=== PATIENT | male | born 1990 | race American Indian/Alaskan Native ===

== ENCOUNTER 2019-12-17 19:05 | Emergency (ER) | payer SELFPAY ==
[2019-12-17 19:26] VITALS: BP 138/78
== END 2019-12-17 21:17 | disposition left against medical advice (07) ==
LOC: ED 19:05
DX: T78.40XA Allergy, unspecified, initial encounter (principal); Z53.21 Procedure and treatment not carried out due to patient leaving prior to being seen by health care provider

== ENCOUNTER 2020-09-21 18:15 | Emergency (ER) | payer SELFPAY ==
[2020-09-21 19:09] VITALS: BP 115/85
[2020-09-21] MEDS ORDERED: TETANUS,DIPH,PERTUSS(ACELL) VACCINE 0.5 ML SYRINGE IM ONE (19:14)
--- NOTE | 2020-09-21 19:36 | Emergency Department Report ---
ED General Adult HPI - General Chief complaint: Wound/Laceration Stated complaint: LAC HAND LAC Time Seen by Provider: 09/21/20 19:14 Source: patient Mode of arrival: Ambulatory Limitations: No Limitations - History of Present Illness Initial comments: 30-year-old -[place] male patient presents with complaints of laceration to the right hand today. Patient states he cut his hand on the edge of a broken glass mug. He is unsure of his last tetanus vaccine. He states the bleeding is controlled and denies any significant pain. No numbness/tingling/weakness in his hand or difficulty moving his hand per patient. Severity scale (0 -10): 0 - Related Data Previous Rx's Medication Instructions Recorded Last Taken Type Mupirocin [Bactroban 2% OINT] 1 applic TP TID 7 Days #1 tube 09/21/20 Unknown Rx Allergies Allergy/AdvReac Type Severity Reaction Status Date / Time No Known Allergies Allergy Verified 11/12/13 14:40 ED Review of Systems ROS: Stated complaint: LAC HAND LAC Other details as noted in HPI Constitutional: denies: malaise Musculoskeletal: denies: joint swelling, arthralgia Skin: denies: change in color Neurological: denies: numbness, paresthesias Hematological/Lymphatic: denies: easy bleeding ED Past Medical Hx - Past Medical History Previous Medical History?: Yes Hx Asthma: Yes Additional medical history: Seasonal allergies - Social History Smoking Status: Current Every Day Smoker Substance Use Type: Marijuana - Medications Home Medications: Home Medications Medication Instructions Recorded Confirmed Last Taken Type Mupirocin [Bactroban 2% OINT] 1 applic TP TID 7 Days #1 tube 09/21/20 Unknown Rx ED Physical Exam - General Limitations: No Limitations General appearance: alert, in no apparent distress - Head Head exam: Present: atraumatic, normocephalic - Eye Eye exam: Present: normal appearance - Respiratory Respiratory exam: Absent: respiratory distress - Cardiovascular Cardiovascular Exam: Present: regular rate - Neurological Exam Neurological exam: Present: alert, oriented X3 - Psychiatric Psychiatric exam: Present: normal affect, normal mood - Skin Skin exam: Present: warm, dry, normal color. Absent: intact (Small round superficial flap laceration noted to right medial palm without active bleeding, obvious foreign body, or swelling noted; patient has full range of motion of the right hand and normal sensation and normal perfusion), rash ED Course Vital Signs 04/23/21 19:09 Temperature 98.3 F Pulse Rate 80 Respiratory 16 Rate Blood Pressure 115/85 [Right] O2 Sat by Pulse 98 Oximetry ED Medical Decision Making - Medical Decision Making 30-year-old -[place] male patient presents with complaints of laceration to the right hand today. Patient states he cut his hand on the edge of a br oken glass mug. He is unsure of his last tetanus vaccine. He states the bleeding is controlled and denies any significant pain. No numbness/tingling/weakness in his hand or difficulty moving his hand per patient. Tetanus vaccine updated. Wound was cleaned and sterile dressing placed on wound. He is well-appearing and stable for discharge home. Prescription for mupirocin given. Discussed wound care and signs and symptoms that should prompt immediate return to the emergency department in detail with patient who verbalizes understanding. Critical care attestation.: If time is entered above; I have spent that time in minutes in the direct care of this critically ill patient, excluding procedure time. ED Disposition Clinical Impression: Laceration of left hand Disposition: DC-01 TO HOME OR SELFCARE Is pt being admited?: No Condition: Stable Instructions: Nonsutured Laceration Care Prescriptions: Mupirocin [Bactroban 2% OINT] 1 applic TP TID 7 Days #1 tube Referrals: [facility] [Provider Group] - 3-5 Days
== END 2020-09-21 22:05 | disposition home or self-care (01) ==
LOC: ED 18:15
DX: S61.412A Laceration without foreign body of left hand, initial encounter (principal); J45.909 Unspecified asthma, uncomplicated; F17.200 Nicotine dependence, unspecified, uncomplicated; Z79.899 Other long term (current) drug therapy; W25.XXXA Contact with sharp glass, initial encounter; Y93.89 Activity, other specified; Y92.89 Other specified places as the place of occurrence of the external cause; Y99.8 Other external cause status
CPT/HCPCS: 90471; 90715; 99282